=== PATIENT | female | born 1980 | race African-American/Black ===

== ENCOUNTER 2018-02-22 12:43 | Emergency (ER) | payer OTHER ==
[~2018-02-22] VITALS: Ht 172.7 cm; Wt 80.0 kg
[~2018-02-22 12:43] MED LIST: NO MEDS
[2018-02-22 13:50] VITALS: BP 115/62
== END 2018-02-22 13:50 | disposition home or self-care (01) ==
LOC: ED 12:43
DX: O26.892 Other specified pregnancy related conditions, second trimester (principal); R05 Cough; O99.332 Smoking (tobacco) complicating pregnancy, second trimester; F17.210 Nicotine dependence, cigarettes, uncomplicated; Z3A.27 27 weeks gestation of pregnancy

== ENCOUNTER 2018-05-21 23:15 | Emergency (ER) | payer OTHER | END 2018-05-21 23:45 | disposition T-BHPC | LOC: ED 23:15 | DX: O32.9XX0 Maternal care for malpresentation of fetus, unspecified, not applicable or unspecified (principal); O99.320 Drug use complicating pregnancy, unspecified trimester; F14.90 Cocaine use, unspecified, uncomplicated; O99.330 Smoking (tobacco) complicating pregnancy, unspecified trimester; F17.210 Nicotine dependence, cigarettes, uncomplicated; O98.419 Viral hepatitis complicating pregnancy, unspecified trimester; B19.20 Unspecified viral hepatitis C without hepatic coma; O09.529 Supervision of elderly multigravida, unspecified trimester; O09.30 Supervision of pregnancy with insufficient antenatal care, unspecified trimester; Z3A.00 Weeks of gestation of pregnancy not specified ==